=== PATIENT | female | born 1960 | race Two or more races ===

== ENCOUNTER 2021-03-12 14:00 | Emergency (ER) | payer MEDICARE, OTHER ==
[~2021-03-12] VITALS: Ht 157.5 cm; Wt 72.6 kg
[2021-03-12 16:47] VITALS: BP 177/87
[2021-03-12] MEDS ORDERED: PRED20TA2 PO (16:54)
[2021-03-12] MEDS ORDERED: BENZ100C97 PO (16:54)
[2021-03-12] MEDS ORDERED: DOXY-286 PO (16:54)
[2021-03-12] MEDS ORDERED: methylPREDNISolone SOD SUCC 125 MG/2 ML VL IM ONE (17:00)
[2021-03-12] MEDS ORDERED: cefTRIAXone SOD 1,000 MG VL IM ONE (17:00)
== END 2021-03-12 17:19 | disposition home or self-care (01) ==
LOC: ER 14:00
DX: J06.9 Acute upper respiratory infection, unspecified (principal); I10 Essential (primary) hypertension; Z90.710 Acquired absence of both cervix and uterus; Z20.822 Contact with and (suspected) exposure to COVID-19
CPT/HCPCS: 36415; 71045; 87426; 96372; 99284; J0696; J2930